=== PATIENT | male | born 1990 | race Caucasian/White ===

== ENCOUNTER 2022-12-03 20:33 | Emergency (ER) | payer OTHER ==
[~2022-12-03] VITALS: Ht 172.7 cm; Wt 85.0 kg
[2022-12-03 20:35] VITALS: BP 132/88
== END 2022-12-04 00:52 | disposition home or self-care (01) ==
LOC: ER 20:33
DX: R51.9 Headache, unspecified (principal); E11.9 Type 2 diabetes mellitus without complications; I10 Essential (primary) hypertension
CPT/HCPCS: 99284